=== PATIENT | male | born 1995 | race Two or more races ===

== ENCOUNTER 2019-05-16 05:07 | Emergency (ER) | payer SELFPAY ==
[~2019-05-16] VITALS: Ht 180.3 cm; Wt 99.8 kg
[2019-05-16] MEDS ORDERED: LORAZEPAM INJ 2 MG/ML VIAL ONE (05:17)
--- NOTE | 2019-05-16 05:25 | NUR ---
PT BIB RA C/O ANIXETY. RA STATES THAT PT WAS WALKING FROM HOME TOWARDS THE HOSPITAL WHEN HE WAS PICKED UP. HX OF ANXIETY ATTACKS. AAOX4. NO SOB. BREATHING EVENLY AND UNLABORED. CONNECTED TO MONITOR.
[2019-05-16] MEDS ORDERED: LORAZEPAM INJ 2 MG/ML VIAL IV ONE (05:30)
[2019-05-16] MEDS ORDERED: LORAZEPAM INJ 2 MG/ML VIAL IM ONE (05:30)
--- NOTE | 2019-05-16 06:30 | NUR ---
Patient discharged to home in stable condition. Written and verbal after care instructions given. Patient verbalizes understanding of instruction. Given instruction not to drive or operate behind machinery after taking prescribed medication.
[2019-05-16 06:31] VITALS: BP 128/74
== END 2019-05-16 06:31 | disposition home or self-care (01) ==
LOC: ER 05:09
DX: F41.9 Anxiety disorder, unspecified (principal); F17.200 Nicotine dependence, unspecified, uncomplicated
CPT/HCPCS: 96372; 99284; J2060

== ENCOUNTER 2019-06-03 13:42 | Emergency (ER) | payer OTHER ==
[~2019-06-03] VITALS: Ht 177.8 cm; Wt 79.4 kg
--- NOTE | 2019-06-03 14:02 | NUR ---
PT AAOX4. AMBULATORY. C/O ANXIETY ATTACK SINCE THE MORNING. UPON ASSESSMENT RR EVEN AND UNLABORED, VSS. NO ACUTE DISTRESS NOTED. AWAITING MD FOR [facility]. PLACED ON MONITOR AND PULSE OX. WILL CONTINUE TO MONITOR.
[2019-06-03] MEDS ORDERED: LORAZEPAM INJ 2 MG/ML VIAL ONE (14:17)
[2019-06-03] MEDS ORDERED: LORAZEPAM INJ 2 MG/ML VIAL IM ONE (14:30)
--- NOTE | 2019-06-03 14:30 | NUR ---
EMT AT BEDSIDE FOR ECG
--- NOTE | 2019-06-03 14:56 | NUR ---
PT DENIES FEELING ANXIOUS. VSS.
[2019-06-03 15:50] VITALS: BP 112/89
--- NOTE | 2019-06-03 15:50 | NUR ---
Patient discharged to home in stable condition. Written and verbal after care instructions given. Patient verbalizes understanding of instruction.
== END 2019-06-03 15:51 | disposition home or self-care (01) ==
LOC: ER 13:45
DX: F41.9 Anxiety disorder, unspecified (principal); F32.9 Major depressive disorder, single episode, unspecified; R00.2 Palpitations; R00.0 Tachycardia, unspecified; F17.200 Nicotine dependence, unspecified, uncomplicated; F10.10 Alcohol abuse, uncomplicated; Y90.9 Presence of alcohol in blood, level not specified
CPT/HCPCS: 93005; 96372; 99284; J2060